=== PATIENT | female | born 1985 | race Hispanic/Latino ===

== ENCOUNTER → 2018-05-27 | Outpatient (CLI) | payer BC | END | disposition home or self-care (01) | LOC: RAH 10:47 | PROVIDERS: ATTEND Family Medicine | DX: N63.13 Unspecified lump in the right breast, lower outer quadrant (principal); R92.8 Other abnormal and inconclusive findings on diagnostic imaging of breast | CPT/HCPCS: 76641; 77066 ==

== ENCOUNTER 2024-06-26 21:07 | Emergency (ER) | payer BC, OTHER ==
[~2024-06-26] VITALS: Ht 154.9 cm; Wt 70.8 kg
[2024-06-26 21:40] LABS: HCG,QUALITATIVE URINE NEGATIVE (NEGATIVE)
[2024-06-26 21:42] LABS: APPEARANCE,URINE CLEAR (CLEAR); BILIRUBIN,URINE NEGATIVE (NEGATIVE); COLOR,URINE COLORLESS (YELLOW); GLUCOSE, URINE (UA) >=1000 mg/dL (NEGATIVE); KETONES,URINE 100 mg/dL (NEGATIVE); LEUKOCYTE ESTERASE ,URINE NEGATIVE Leu/uL (NEGATIVE); NITRATE,URINE NEGATIVE (NEGATIVE); OCCULT BLOOD,URINE NEGATIVE (NEGATIVE); PROTEIN,URINE NEGATIVE (NEGATIVE); UROBILINOGEN,URINE 0.2 mg/dL (0.2-1.0)
[2024-06-26 21:43] LABS: ADD UA MICROSCOPIC YES
[2024-06-26 21:49] LABS: BACTERIA,URINE RARE /HPF (None Seen); SQUAMOUS EPITHELIAL CELL,UR RARE /HPF (0-2); YEAST,URINE BUDDING RARE /HPF (None Seen)
[2024-06-26 22:13] LABS: BASOPHILS # (AUTO) 0.03 K/uL (0.00-0.20); BASOPHILS % (AUTO) 0.3 % (0.0-5.0); EOSINOPHILS # (AUTO) 0.09 K/uL (0.00-0.70); HEMATOCRIT 41.6 % (36-48); IMMATURE GRANULOCYTE ABSOLUTE 0.03 K/uL (0-1); LYMPHOCYTES % (AUTO) 21.1 % (21.0-51.0); MEAN CORPUSCULAR HEMOGLOBIN 29.4 pg (27.0-33.0); MEAN CORPUSCULAR HGB CONC 34.4 g/dL (32.0-36.0); MEAN CORPUSCULAR VOLUME 85.4 fL (79-99); MONOCYTES # (AUTO) 0.8 K/uL (0.1-1.0); MONOCYTES % (AUTO) 8.1 % (3.0-13.0); NEUTROPHILS # (AUTO) 6.5 K/uL (1.8-7.7); NEUTROPHILS % (AUTO) 69.2 % (40.0-77.0); PLATELET COUNT (AUTO) 271 K/uL (130-400); RED BLOOD CELL COUNT(AUTO) 4.87 MIL/uL (4.00-5.50); RED CELL DISTRIBUTION WIDTH 12.9 % (11.0-15.5); WHITE BLOOD COUNT (AUTO) 9.3 K/uL (4.8-10.8)
[2024-06-26 22:29] LABS: POTASSIUM 3.5 mmol/L (3.5-5.1)
[2024-06-27] MEDS: 0.9%NACL 1000ML 1,000 ML IV ONE (00:49)
[2024-06-27] MEDS: ketOROlac 15MG/ML VIAL (15MG/ML) IV ONE (00:49)
[2024-06-27] MEDS: cefTRIAXone 1G VIAL IVPB ONE (00:49)
[2024-06-27] MEDS: INSULIN humuLIN R 100 UNIT/ML 3ML IV ONE (00:56)
[2024-06-27] MEDS ORDERED: KETO10TA2 PO (01:47)
[2024-06-27] MEDS ORDERED: SULF1TAB42 PO (01:47)
[2024-06-27 02:23] VITALS: BP 141/84; PULSE 90; RESP 18; TEMP 98.6; O2SAT 97
== END 2024-06-27 02:33 | disposition home or self-care (01) ==
LOC: EDH 21:07
DX: L02.214 Cutaneous abscess of groin (principal); E10.65 Type 1 diabetes mellitus with hyperglycemia; E78.00 Pure hypercholesterolemia, unspecified; I10 Essential (primary) hypertension; Z79.4 Long term (current) use of insulin; Z79.899 Other long term (current) drug therapy
CPT/HCPCS: 99284; 80048; 85025; 82948 ×2; 83605; 81001; 81025; 36415; 96365; 96375; J1815; J7030; J0696; J1885

== ENCOUNTER 2024-06-30 13:27 | Emergency (ER) | payer OTHER ==
[~2024-06-30] VITALS: Ht 154.9 cm; Wt 71.7 kg
[~2024-06-30 13:27] MED LIST: KETO10TA2 PO; SULF1TAB42 PO
[2024-06-30] MEDS: cefTRIAXone 1G VIAL IM ONE (14:46)
[2024-06-30] MEDS: ketOROlac 60 MG VIAL (30MG/ML) IM ONE (14:46)
[2024-06-30] MEDS ORDERED: ACET-2079 PO (15:29)
[2024-06-30 15:33] VITALS: BP 128/88; PULSE 88; RESP 20; TEMP 98.7; O2SAT 99
== END 2024-06-30 15:37 | disposition home or self-care (01) ==
LOC: EDH 13:27
DX: L02.214 Cutaneous abscess of groin (principal); N75.0 Cyst of Bartholin's gland; E10.9 Type 1 diabetes mellitus without complications; E78.00 Pure hypercholesterolemia, unspecified; I10 Essential (primary) hypertension
CPT/HCPCS: 99284; 96372 ×2; J0696; J1885